=== PATIENT | female | born 1970 | race Caucasian/White ===

== ENCOUNTER 2016-11-25 12:37 | Day surgery (SDC) | payer OTHER ==
[2016-11-18 14:14] VITALS: BMI 36.1
[2016-11-25] MEDS ORDERED: Bupivacaine HCl 0.5% PF (10 ml) Inj ONE (14:01)
[2016-11-25] MEDS ORDERED: Lidocaine 2% Inj (20ml) ONE (14:01)
[2016-11-25] MEDS ORDERED: ceFAZolin IV 1 gm in Dextrose 100 ML IVPB ONE (14:01)
[2016-11-25] MEDS ORDERED: Midazolam 2 MG/2 ML VIAL ONE (14:04)
[2016-11-25] MEDS ORDERED: Propofol 10 mg/ml Inj (20 ML) ONE (14:04)
[2016-11-25] MEDS ORDERED: Lidocaine Hydrochloride 5 ML INJ ONE ×2 (14:05→17:53)
[2016-11-25] MEDS ORDERED: Lactated Ringer's 1,000 ML IV ONE (16:50)
[2016-11-25] MEDS ORDERED: Dexamethasone 4 mg/1 ml ONE (17:00)
[2016-11-25] MEDS ORDERED: HYDROmorphone 0.5 mg/0.5 ml ISec IVP PRN (17:32)
[2016-11-25] MEDS ORDERED: Oxycodone/Acetaminophen 5/325 mg Tab PO PRN ×2 (17:39)
--- NOTE | 2016-11-25 17:42 | PCM.SURG1 ---
Surgeon's Initial Post Op Note - Surgeon's Notes Surgeon: melinda Glue Cook: kira cook Type of Anesthesia: General LMA Anesthesia Administered By: su Pre-Operative Diagnosis: right ankle arthritis, riht ankle instability, right syndesmotic tear Operative Findings: see dictation Post-Operative Diagnosis: same Operation Performed: right ankle scope. right lateral ankle stab. right syndesmotic repari Specimen/Specimens Removed: none Estimated Blood Loss: EBL {In ML}: 5 Blood Products Given: N/A Drains Used: No Drains Post-Op Condition: Good Date of Surgery/Procedure: 11/25/16 Time of Surgery/Procedure: 17:42
[2016-11-25] MEDS ORDERED: Lactated Ringer's 1,000 ML IV SCH (17:45)
--- NOTE | 2016-11-25 17:45 | CP.PCM.DIS ---
Provider - Provider Attending physician: [place] Lawrence DPM Time Spent in preparation of Discharge (in minutes): 25 Diagnosis - Discharge Diagnosis (1) Ankle pain, right Status: Acute Hospital Course - Hospital Course Hospital Course: patient tolerated anesthesia an dproceudre well and was transported to the recovery room with VSS and NVSI to the right foot. Patient is to be nwb to the right foot and has been crutch trained w/o complication Rx placed in the chart To f/u with Dr. lawrence in 1 week in clinic. Discharge Exam - Neurological Exam Neurological exam: Alert, Oriented x3 - Psychiatric Exam Psychiatric exam: Normal Affect, Normal Mood - Skin Skin Exam: Normal Color, Warm - Additional Findings Additional findings: neurovascular status intact to the patients right foot Discharge Plan - Follow Up Plan Condition: GOOD Disposition: HOME/ ROUTINE Additional Instructions: patient tolerated anesthesia an dproceudre well and was transported to the recovery room with VSS and NVSI to the right foot. Patient is to be nwb to the right foot and has been crutch trained w/o complication Rx placed in the chart To f/u with Dr. lawrence in 1 week in clinic.
[2016-11-25] MEDS ORDERED: Bupivacaine HCl 0.25% PF (10 ml) Inj ONE (17:53)
--- NOTE | 2016-11-25 18:26 | PCM.ANESB2 ---
Popliteal Nerve Block - Popliteal Nerve Block Date of Procedure: 11/25/16 Anesthesiologist: Felecia Pre-Procedure Diagnosis: s/p right ankle arthroscopy Post-Procedure Diagnosis: same Procedure Performed: Popliteal Nerve Block Right - Procedure Popliteal Nerve Block: This procedure was explained to the patient that it is for post-operative pain management. Consent was obtained after a thorough discussion with the patient regarding the benefits and possible complications of local anesthetic block of the sciatic nerve at the popliteal level. The patient placed on standard monitors. Time-out was held with the PACU nurse to confirm the correct surgery and the appropriate block. After applying oxygen by nasal cannula, patient's operative leg was gently raised and supported and the groove in between the biceps femoris and vastus lateralis muscles was carefully palpated. The skin approximately 8cm above the popliteal crease was then marked. The ultrasound transducer was then applied to the posterior thigh approximately 8cm above the popliteal crease in the transverse plane and the sciatic nerve before its division was visualized lateral to the popliteal artery and in between the bicep femoris and semimembranosus/semitendinosus muscles. After identification, the lateral portion of the thigh was prepped with chloraprep and 3mL of Lidocaine 1% was injected subcutaneously for topical anesthesia. At this point, a # 21 gauge Stimuplex insulated 4 inch needle was inserted into pre-marked area and advanced in a perpendicular direction. The needle was inserted above the ultrasound transducer in-plane towards the sciatic nerve in a [id number] direction. Needle advancement was performed carefully under constant direct ultrasound visualization. After repeated negative aspiration, 5cc of 0.25% bupivacaine was injected and this was flowed with 25cc of 0.25% bupivacaine. Under ultrasound guidance the local anesthetics were observed tenting the epidural sheath and surrounding the roots of the sciatic nerve. The needle was removed intact and sterile dressing was applied. The patient tolerated the popliteal nerve block well with stable vital signs.
[2016-11-25 19:42] VITALS: O2SAT 97
[2016-11-25 20:50] VITALS: BP 128/70; PULSE 82; RESP 16; TEMP 98.1
--- NOTE | 2016-11-26 10:57 | RAD ---
PROCEDURE: Right Ankle Radiographs. HISTORY: s/p right foot surgery COMPARISON: 05/27/2016 FINDINGS: BONES: The diagonal screw transfixing a distal fibular nondisplaced fracture is renoted. There is metallic densities -button like projecting over the distal medial tibia metaphysis and fibular metaphysis. An interval horizontal faint track line on the lateral view projects between these interval metallic devices . Correlation regarding any syndesmotic treatment here is needed. Tiny hyperdensities project close to the interval rounded metallic device over distal fibular metaphysis on the frontal view -probably tiny metallic and/or osseous shavings. Oblique faint radiolucent track line medial malleolus consistent with prior fixation of the medial malleolar fracture. JOINTS: trace 2 mm subcortical cyst and radiolucency in the medial talar dome is possible. SOFT TISSUES: Normal. OTHER FINDINGS: None. IMPRESSION: Interval postop changes - probably relating to syndesmotic stabilization. Prior fixation of a nondisplaced distal fibular fracture with intact screw remaining here. No gross residual fracture line apparent Inferred transfixation of a prior medial malleolar fracture with residual track line evident. No residual fracture line here noted Mild tibiotalar hypertrophic arthrosis changes
--- NOTE | 2016-11-28 19:02 | OP ---
PROCEDURE DATE: 11/25/2016 SURGEON: [place] Ho DPM COMPENSATION VICE PRESIDENT: Angela Meade, PGY3, [facility] PGY2 ANESTHESIA: General anesthesia with popliteal block. PREOPERATIVE DIAGNOSES: 1. Right ankle synovitis and posttraumatic arthritis. 2. Lateral ankle instability. 3. Syndesmotic rupture, right. POSTOPERATIVE DIAGNOSES: 1. Right ankle synovitis and posttraumatic arthritis. 2. Lateral ankle instability. 3. Syndesmotic rupture, right. PROCEDURES: 1. Right ankle diagnostic and therapeutic ankle arthroscopy with debridement of hypertrophic synovium and arthritis. 2. Right lateral ankle stabilization with Arthrex internal brace. 3. Right repair of syndesmosis with Arthrex TightRope system. INDICATIONS: The patient is a 46-year-old female with the above-mentioned diagnosis. The patient has exhausted all conservative treatment at this time and is now requesting surgical intervention. The patient signed the consent after careful explanation of all risks, benefits, complications and alternatives to the surgical procedure. No guarantees were given nor implied. PREPARATION: The patient was brought to the operating room, placed on the operating room table in supine position. A well-padded pneumatic thigh tourniquet was applied to the patient's right thigh. After induction of general anesthesia, the patient's right lower extremity was then prepped and draped in usual sterile manner. At this time, the patient's right lower extremity was then exsanguinated with Esmarch and pneumatic thigh tourniquet inflated to 350 mmHg and the procedure began. PROCEDURE #1: Right ankle diagnostic and therapeutic arthroscopy with debridement of hypertrophic synovium and arthritis. Attention was directed to the anterior aspect of the patient's right ankle where the anterior ankle anatomy was identified along with the medial and lateral gutters at the level of the ankle joint. Approximately 20 mL of normal sterile saline was utilized to insufflate the ankle joint with an 18 gauge needle. A #15 blade was utilized to create a portal overlying the medial gutter of the right ankle joint. With the use of a hemostat, blunt dissection was carried to the level of the joint capsule. A cannula along with the obturator were utilized to penetrate the right ankle joint capsule with the arthroscopy camera and was placed within the cannula to allow visualization upon the ankle joint. Upon inspection of the right ankle joint, there was a significant amount of hypertrophic synovium visualized along with fibrous bands to the point that the actual ankle joint itself could not be visualized. The hypertrophic synovium encompassed the entirety of the ankle joint itself. At this time, the camera was brought over to the lateral aspect of the ankle joint, which was transilluminated and a lateral portal was created in the same fashion as the medial portal. Next, a 3.5 aggressive shaver was placed into the lateral portal to allow for debridement of the lateral and anterior aspect of the ankle joint. Utilizing the aggressive shaver along with the Arthrocare wand itself, we were able to debride enough of the hypertrophic synovium to allow for visualization of the ankle joint itself. The right ankle joint was then copiously irrigated with normal sterile saline. The arthroscope along with the wand were removed from the surgical site and the portals were reapproximated utilizing 4-0 nylon in simple suture technique. PROCEDURE #2: Right foot primary repair of the anterior talofibular ligament with Arthrex internal brace. Attention was directed to the lateral aspect of the ankle. The ankle joint was taken through range of motion and a curvilinear incision was created following the contour of the anterior aspect of the fibula. The incision was approximately 6 cm in length. The incision was deepened through subcutaneous tissue with care being taken to identify and retract all vital neurovascular structures. All bleeders were cauterized and ligated as necessary. Next, utilizing a #15 blade, the capsular structures were incised in a similar fashion to the original incision through the skin. Dissection was carried down to the level of the ankle joint. At this time, it was noted that the anterior talofibular ligament was ruptured with significant hemorrhaging within the area. The drill from the internal brace system was utilized to create a facilities flight check pilot drill hole for the Arthrex internal brace kit within the neck of the talus. Once it had gone into the talus, the internal brace was fed deep to the capsular and extensor retinaculum, pulled superficially and retracted from the surgical site. Next, attention was created to the distal aspect of the fibula, where utilizing the drill from the internal brace system, a facilities flight check pilot hole was created in the distal aspect of the fibula. Next, the FiberTape from the original suture anchor was fed through the distal aspect of the internal brace anchor. The ankle joint was placed into a dorsiflexed everted position and the second anchor from the internal brace was then seated into the fibula itself and all redundant FiberTape was removed. The incision site was then flushed with copious amounts of normal sterile saline. The capsule itself was reefed and was reinforced utilizing 2-0 Vicryl. The deep tissue was reapproximated and coapted utilizing 3-0 Vicryl and the skin was reapproximated and coapted utilizing 4-0 Monocryl in a running subcuticular technique. PROCEDURE #3: Right ankle syndesmotic repair with Arthrex TightRope. A stab incision was created overlying the distal fibula at the level of the syndesmosis. The incision was carried through the subcutaneous tissue, being careful to retract all vital neurovascular structures. All bleeders were cauterized and ligated as necessary. Utilizing a [place] elevator, the periosteal structures were reflected free of the fibula. Next, a K-wire from the Arthrex TightRope set was utilized as a guide for the drill. The K-wire was drive from the lateral aspect of the fibula into the medial aspect of the tibia. A cannulated drill from the Arthrex TightRope was passed over the K- wire. Utilizing intraoperative fluoroscopy, the position of K-wire and drill was identified, both on the AP mortise and lateral views. The K-wire and the drill from the Arthrex TightRope were then removed. The TightRope was passed through the drill hole to the medial aspect of the joint. Care was taken to make sure that the button on the medial aspect of the joint was placed flat against the tibial cortex. Once this was confirmed, the TightRope system was tightened down. The extra suture threads were then cut from the surgical site. All incision sites were flushed with copious amounts of normal sterile saline and reapproximated utilizing 4-0 Prolene. All incision sites were then dressed with Betadine-soaked Adaptic and DSD. The patient was placed in a well-padded posterior splint with the foot held in 90 degrees in relation to the leg. POSTOPERATIVE CONDITION: The patient tolerated the procedure and anesthesia well and was escorted to recovery with all vital signs stable and neurovascular status intact to the patient's right lower extremity. It is to be noted that the patient will be nonweightbearing in a posterior splint to the right lower extremity with crutches and the patient will follow up with Dr. Ho in her office in 1 week. Angela Meade DPM [place] Ho DPM cc: [id number] TT: 11/28/2016 19:01:58 en MTDD
== END 2016-11-25 20:30 | disposition home or self-care (01) ==
LOC: C.SDS 12:37
PROVIDERS: ATTEND Podiatrist Foot & Ankle Surgery
DX: M19.171 Post-traumatic osteoarthritis, right ankle and foot (principal); M25.371 Other instability, right ankle; S93.491A Sprain of other ligament of right ankle, initial encounter; M65.9 Synovitis and tenosynovitis, unspecified
CPT/HCPCS: 11011; 27829; 29899; 73600; C1713; J0171; J0690; J1100; J1170; J2250; J2405; J2704; J3010; J7120